=== PATIENT | female | born 1990 | race Caucasian/White ===

== ENCOUNTER 2020-04-29 12:09 | Emergency (ER) | payer OTHER ==
[~2020-04-29] VITALS: Ht 157.5 cm; Wt 69.0 kg
[~2020-04-29 12:09] MED LIST: IBUPROFEN 800800 M1 PO
[2020-04-29 12:21] VITALS: BP 108/75
[2020-04-29 12:57] LABS: URINE BILIRUBIN NEGATIVE (Negative); URINE BLOOD NEGATIVE (Negative); URINE CLARITY CLEAR; URINE COLOR YELLOW; URINE GLUCOSE-RANDOM NEGATIVE (Negative); URINE KETONES NEGATIVE (Negative); URINE LEUKOCYTES-REFLEX NEGATIVE (Negative); URINE NITRITE-REFLEX NEGATIVE (Negative); URINE PROTEIN NEGATIVE (Negative); URINE UROBILINOGEN 0.2 E.U./dl (0.2-1.0)
[2020-04-29 13:09] LABS: ABSOLUTE LYMPHOCYTES 1.7 thou/uL (0.8-5.3); ABSOLUTE MONOCYTES 0.5 thou/uL (0.0-1.2); BASOPHILS 0.7 %; EOSINOPHILS 0.6 %; HEMATOCRIT 40.9 % (37.0-47.0); HEMOGLOBIN 14.3 gm/dL (12.0-15.0); LYMPHOCYTES 27.1 %; MCH 31.1 pg (26.0-34.0); MCHC 34.9 g/dL (28.0-37.0); MCV 89.2 fL (80.0-100.0); MONOCYTES 8.2 %; MPV 7.9 fl. (7.2-11.1); NUCLEATED RBCS 0 /100WBC; PLATELET COUNT* 325 thou/uL (150-400); POLYS 63.4 %; RBC 4.58 mil/uL (4.20-5.00); RDW-CV 12.6 % (10.5-14.5); WBC 6.3 thou/uL (4.0-11.0)
[2020-04-29 13:20] LABS: CALCIUM 8.8 mg/dL (8.5-10.1); CREATININE 0.7 mg/dL (0.6-1.3)
[2020-04-29 13:24] LABS: ALBUMIN 4.3 g/dL (3.4-5.0); TOTAL BILIRUBIN 0.9 mg/dL (<0.1-1.0); TOTAL PROTEIN 7.8 g/dL (6.4-8.2)
[2020-04-29 14:39] LABS: AMP/METHAMP Negative (Negative); BARBITURATES Negative (Negative); BENZODIAZEPINES Negative (Negative); COCAINE Negative (Negative); METHADONE Negative (Negative); OPIATES Negative (Negative); PCP Negative (Negative); THC Negative (Negative)
[2020-04-29] MEDS ORDERED: NORCO 5-325 TA1 EAC2 PO (15:37)
[2020-04-29] MEDS ORDERED: ZOFRAN ODT4 MG SUBLING (15:38)
[2020-04-29 15:50] VITALS: BP 100/80
--- NOTE | 2020-04-29 16:20 | EKG ---
[place] [address] ELECTROCARDIOGRAM REPORT Name: KOWALSKIBARBYEUFEMIA Rishabh Room: [facility]#: [id number] Admission: 04/29/20 Attend Phys: Discharge: 04/29/20 Date of : 88 Date of Service: 04/29/20 1341 Report #: [id number] THIS REPORT FOR: //name// [facility] ED Test Date: 2020-04-29 Test Time: 13:41:25 Pat Name: SARI KOWALSKI Department: Room: [facility] Gender: F Almond Blanc[place]: [facility] [place] 1990 Requested By: Laura Sandoval Order Number: [id number] MD: Patrick Randolph Measurements Intervals [place] Rate: 67 P: 99 SC: 177 QRS: 73 QRSD: 75 T: 23 QT: 372 QTc: 393 Interpretive Statements Sinus rhythm No previous ECG available for comparison Electronically Signed On 04-29-2020 16:19:51 CDT by Patrick Randolph [email or web address] <ELECTRONICALLY SIGNED> By: Patrick Randolph MD, [facility] 04/29/20 1619 1341 1341 Patrick Randolph MD, FACC /EPI
== END 2020-04-29 15:51 | disposition still patient (30) ==
LOC: M.ERS 12:09 → M.TBA-ER 14:06 → M.ERS 14:06
PROVIDERS: Nurse Practitioner Family
DX: K85.20 Alcohol induced acute pancreatitis without necrosis or infection (principal); E86.0 Dehydration; N83.201 Unspecified ovarian cyst, right side; R74.8 Abnormal levels of other serum enzymes; Z20.828 Contact with and (suspected) exposure to other viral communicable diseases; N80.9 Endometriosis, unspecified; Z90.711 Acquired absence of uterus with remaining cervical stump; Z79.899 Other long term (current) drug therapy

== ENCOUNTER → 2021-03-30 | Outpatient (CLI) | payer OTHER ==
[~2021-03-30] MED LIST changes: +NORCO 5-325 TA1 EAC2 PO; +ZOFRAN ODT4 MG SUBLING
== END ==
LOC: M.ULTRA 11:27
PROVIDERS: ATTEND Family Medicine
DX: N64.4 Mastodynia (principal); R92.2 Inconclusive mammogram